=== PATIENT | female | born 1935 | race Hispanic/Latino ===

== ENCOUNTER 2019-03-01 15:58 | Observation (INO) | payer MEDICARE ==
[~2019-03-01 15:58] MED LIST: AMLO5TAB9 PO; CELE-84 PO; JUICE PLUS; LEVO50TA11 PO; LOPE2CAP PO; MECL-183 PO; ONDA-104 PO; PANT40TA25 PO; VALS1TAB80 PO
[2019-03-01] MEDS ORDERED: ONDANSETRON HCL 4 MG/2 ML VIAL ONE (17:19)
[2019-03-01] MEDS ORDERED: SODIUM CHLORIDE 0.9% 500ML 500 ML IV ONE ×2 (17:20→18:29)
[2019-03-01 17:22] LABS: BASOPHILS % (AUTO) 0.2 % (0.0-5.0); EOSINOPHILS % (AUTO) 0.4 % (0.0-8.0); HEMATOCRIT 34.8 % (36-48); LYMPHOCYTES % (AUTO) 31.8 % (21.0-51.0); MEAN CORPUSCULAR HEMOGLOBIN 30.2 pg (27.0-33.0); MEAN CORPUSCULAR VOLUME 91.3 fL (79-99); MONOCYTES % (AUTO) 13.4 % (3.0-13.0); NEUTROPHILS % (AUTO) 53.8 % (40.0-77.0); PLATELET COUNT (AUTO) 221 K/uL (130-400); RED BLOOD CELL COUNT(AUTO) 3.81 MIL/uL (4.00-5.50); RED CELL DISTRIBUTION WIDTH 12.8 % (11.0-15.5); WHITE BLOOD COUNT (AUTO) 4.6 K/uL (4.8-10.8)
[2019-03-01 17:30] LABS: CREATININE 1.7 mg/dL (0.5-1.5); POTASSIUM 3.9 mmol/L (3.5-5.1)
[2019-03-01 17:35] LABS: ALBUMIN 3.5 g/dL (3.5-5.0); BILIRUBIN,TOTAL 0.5 mg/dL (0.2-1.0); TOTAL PROTEIN, SERUM 7.6 g/dL (6.0-8.3)
[2019-03-01 19:01] LABS: APPEARANCE,URINE Clear (CLEAR); BILIRUBIN,URINE Negative (NEGATIVE); COLOR,URINE Yellow (YELLOW); GLUCOSE, URINE (UA) Negative (NEGATIVE); KETONES,URINE Negative (NEGATIVE); LEUKOCYTE ESTERASE ,URINE Negative (NEGATIVE); NITRATE,URINE Negative (NEGATIVE); OCCULT BLOOD,URINE Negative (NEGATIVE); PROTEIN,URINE Negative (NEGATIVE); UROBILINOGEN,URINE 0.2 mg/dL (0.2-1.0)
[2019-03-01] MEDS ORDERED: SODIUM CHLORIDE 0.9% 1000ML 1,000 ML IV SCH (20:04)
[2019-03-01] MEDS ORDERED: NITROGLYCERIN 0.4 MG SL TAB SL PRN (20:15)
[2019-03-01] MEDS ORDERED: ACETAMINOPHEN 325 MG TAB PO PRN ×2 (20:15)
[2019-03-01] MEDS ORDERED: FAMOTIDINE 20MG TAB 20 MG TAB ONE (20:43)
[2019-03-01] MEDS ORDERED: OSELTAMIVIR PHOSPHATE 75 MG CAP ONE (20:44)
[2019-03-01] MEDS ORDERED: SODIUM CHLORIDE 0.9% 1000ML 1,000 ML IV ONE (20:45)
[2019-03-01] MEDS ORDERED: OSELTAMIVIR PHOSPHATE 75 MG CAP PO SCH (21:00)
[2019-03-02] MEDS ORDERED: IPRATROPIUM/ALBUTEROL SULFATE 3 ML SOLUTION IH PRN (01:00)
[2019-03-02] MEDS ORDERED: IPRATROPIUM/ALBUTEROL SULFATE 3 ML SOLUTION IH ONE (01:54)
[2019-03-02 06:32] LABS: HEMATOCRIT 33.1 % (36-48); MEAN CORPUSCULAR HGB CONC 32.6 g/dL (32.0-36.0); MEAN CORPUSCULAR VOLUME 91.9 fL (79-99); PLATELET COUNT (AUTO) 194 K/uL (130-400); RED CELL DISTRIBUTION WIDTH 12.7 % (11.0-15.5); WHITE BLOOD COUNT (AUTO) 4.4 K/uL (4.8-10.8)
[2019-03-02 06:48] LABS: ALBUMIN 3.2 g/dL (3.5-5.0); BILIRUBIN,TOTAL 0.4 mg/dL (0.2-1.0); CREATININE 1.6 mg/dL (0.5-1.5); POTASSIUM 3.5 mmol/L (3.5-5.1)
[2019-03-02 08:26] LABS: LYMPHOCYTES % (MANUAL) 42 % (22-44); MAN.DIFF COMMENT-IMPRESSION MANUAL DIFFERENTIAL; MONOCYTES % (MANUAL) 7 % (2-9); PLATELET MORPHOLOGY COMMENT ADEQUATE; REACTIVE LYMPHOCYTES 6 % (0-0); SEGMENTED NEUTROPHILS % 45 % (40-70)
[2019-03-02] MEDS ORDERED: FAMOTIDINE 20MG TAB 20 MG TAB PO SCH (09:00)
[2019-03-02] MEDS ORDERED: FAMOTIDINE 20MG TAB 20 MG TAB ONE (12:08)
[2019-03-02] MEDS ORDERED: OSELTAMIVIR PHOSPHATE 75 MG CAP ONE (12:09)
[2019-03-02] MEDS ORDERED: OSEL75 PO (13:23)
--- NOTE | 2019-03-02 15:00 | NUR ---
Discharge instructions given to pt's daughter due to pt has dementia, prescription for Tamiflu was called in [facility] in [place] as per daughter's request
== END 2019-03-02 15:05 | disposition home or self-care (01) ==
LOC: EDH 15:58 → INTOOBSV 20:11 → EDHIP 20:11
PROVIDERS: ADMIT Internal Medicine; ATTEND Internal Medicine
DX: J09.X2 Influenza due to identified novel influenza A virus with other respiratory manifestations (principal); E86.0 Dehydration; I12.9 Hypertensive chronic kidney disease with stage 1 through stage 4 chronic kidney disease, or unspecified chronic kidney disease; N18.3 Chronic kidney disease, stage 3 (moderate); R00.1 Bradycardia, unspecified; R62.7 Adult failure to thrive; K21.9 Gastro-esophageal reflux disease without esophagitis; Z90.49 Acquired absence of other specified parts of digestive tract; Z79.899 Other long term (current) drug therapy; Z88.8 Allergy status to other drugs, medicaments and biological substances
CPT/HCPCS: 36415 ×2; 71045; 80053 ×2; 81003; 82948; 83735; 85025 ×2; 87486; 87581; 87633; 87798; 87804 ×2; 93005; 94640; 94664; 99284; G0378 ×19; J2405; J7030; J7040 ×2

== ENCOUNTER → 2020-01-14 | Outpatient (CLI) | payer MEDICARE ==
[~2020-01-14] MED LIST changes: +AMLO-257 PO; -AMLO5TAB9 PO; +OSEL75 PO; -PANT40TA25 PO; +PANT40TA54 PO
== END | disposition home or self-care (01) ==
LOC: SHCH 09:46
PROVIDERS: ATTEND Internal Medicine Cardiovascular Disease
DX: I35.1 Nonrheumatic aortic (valve) insufficiency (principal); R01.1 Cardiac murmur, unspecified
CPT/HCPCS: 93306; 93356; 93880

== ENCOUNTER 2022-07-02 15:43 | Emergency (ER) | payer MEDICARE ==
[~2022-07-02] VITALS: Ht 160 cm; Wt 63.5 kg
[~2022-07-02 15:43] MED LIST changes: -MECL-183 PO; +MECL-226 PO
[2022-07-02] MEDS ORDERED: ONDANSETRON 4MG INJ IVP ONE (16:00)
[2022-07-02] MEDS ORDERED: MECLIZINE HCL 12.5 MG TABLET PO PRN (16:00)
[2022-07-02] MEDS ORDERED: 0.9%NACL 1000ML 1,000 ML IV ONE (16:00)
[2022-07-02] MEDS ORDERED: ONDANSETRON 4MG TABLET PO PRN (16:00)
[2022-07-02] MEDS ORDERED: LEVO-171 PO (16:04)
[2022-07-02] MEDS ORDERED: DONE5TAB33 PO (16:04)
[2022-07-02] MEDS ORDERED: CLOP75TA32 PO (16:04)
[2022-07-02] MEDS ORDERED: VITAD400 GT (16:04)
[2022-07-02] MEDS ORDERED: FURO20TA4 PO (16:04)
[2022-07-02] MEDS ORDERED: LOSA100T59 PO (16:04)
[2022-07-02 16:11] VITALS: BP 152/43
[2022-07-02 16:13] LABS: APPEARANCE,URINE CLEAR (CLEAR); BASOPHILS % (AUTO) 0.1 % (0.0-5.0); BILIRUBIN,URINE NEGATIVE (NEGATIVE); COLOR,URINE YELLOW (YELLOW); EOSINOPHILS % (AUTO) 0.1 % (0.0-8.0); GLUCOSE, URINE (UA) NEGATIVE (NEGATIVE); HEMATOCRIT 29.5 % (36-48); KETONES,URINE NEGATIVE (NEGATIVE); LEUKOCYTE ESTERASE ,URINE NEGATIVE Leu/uL (NEGATIVE); LYMPHOCYTES % (AUTO) 14.4 % (21.0-51.0); MEAN CORPUSCULAR HEMOGLOBIN 31.3 pg (27.0-33.0); MEAN CORPUSCULAR HGB CONC 34.2 g/dL (32.0-36.0); MEAN CORPUSCULAR VOLUME 91.3 fL (79-99); MONOCYTES % (AUTO) 8.8 % (3.0-13.0); NEUTROPHILS % (AUTO) 76.2 % (40.0-77.0); NITRATE,URINE NEGATIVE (NEGATIVE); OCCULT BLOOD,URINE NEGATIVE (NEGATIVE); PLATELET COUNT (AUTO) 179 K/uL (130-400); PROTEIN,URINE NEGATIVE (NEGATIVE); RED BLOOD CELL COUNT(AUTO) 3.23 MIL/uL (4.00-5.50); RED CELL DISTRIBUTION WIDTH 12.5 % (11.0-15.5); UROBILINOGEN,URINE 0.2 mg/dL (0.2-1.0); WHITE BLOOD COUNT (AUTO) 7.7 K/uL (4.8-10.8)
[2022-07-02] MEDS ORDERED: ACETAMINOPHEN 325 MG TAB ONE (16:13)
[2022-07-02 16:26] LABS: CREATININE 1.8 mg/dL (0.5-1.5); POTASSIUM 3.6 mmol/L (3.5-5.1)
[2022-07-02 16:30] LABS: ALBUMIN 3.2 g/dL (3.5-5.0); TOTAL PROTEIN, SERUM 6.5 g/dL (6.0-8.3)
[2022-07-02] MEDS ORDERED: ACETAMINOPHEN 650 MG SUPPOSITORY RC ONE (16:30)
[2022-07-02] MEDS ORDERED: LOPERAMIDE HCL 2 MG CAP PO ONE (17:00)
[2022-07-02] MEDS ORDERED: ONDA4TAB10 PO (17:05)
[2022-07-02] MEDS ORDERED: LOPE2CAP PO (17:05)
[2022-07-03] MEDS ORDERED: LOSARTAN 100 MG TABLET PO SCH (09:00)
[2022-07-03] MEDS ORDERED: HYDROCHLOROTHIAZIDE 25 MG TABLET PO SCH (09:00)
[2022-07-03] MEDS ORDERED: PANTOPRAZOLE 40 MG TAB DR PO SCH (09:00)
[2022-07-03] MEDS ORDERED: AMLODIPINE 5 MG TAB PO SCH (09:00)
== END 2022-07-02 17:31 | disposition home or self-care (01) ==
LOC: EDH 15:43
DX: R19.7 Diarrhea, unspecified (principal); I10 Essential (primary) hypertension; E78.00 Pure hypercholesterolemia, unspecified; Z20.822 Contact with and (suspected) exposure to COVID-19; Z79.899 Other long term (current) drug therapy
CPT/HCPCS: 99285; 80053; 85025; 87040 ×2; 87804 ×2; 83605; 81003; 36415; 87635; 74018; 71045; 96374; 96361; 93005; C9803; J2405